=== PATIENT | female | born 1960 | race Caucasian/White ===

== ENCOUNTER 2022-02-04 00:23 | Inpatient (IN) | payer MEDICARE, OTHER ==
[~2022-02-04] VITALS: Ht 162.6 cm; Wt 66.6 kg
[2022-02-04 00:44] LABS: PO2 Arterial 76.4 mmHg (80-100); pH Blood Arterial 7.27 (7.35-7.45)
[2022-02-04 00:54] LABS: BASOPHILS ABSOLUTE AUTO 0.05 K/mm3 (0.00-0.23); BASOPHILS PERCENT AUTO 0 % (0-2); EOSINOPHILS ABSOLUTE AUTO 0.01 K/mm3 (0.00-0.68); EOSINOPHILS PERCENT AUTO 0 % (0-6); Hematocrit 33.9 % (33.0-51.0); Hemoglobin 9.2 g/dL (11.5-16.0); IMMATURE GRAN ABSOLUTE AUTO 0.29 K/mm3 (0.00-0.10); IMMATURE GRAN PERCENT AUTO 2 % (0-1); LYMPHOCYTES ABSOLUTE AUTO 0.76 K/mm3 (0.84-5.20); LYMPHOCYTES PERCENT AUTO 4 % (21-46); MONOCYTES ABSOLUTE AUTO 1.58 K/mm3 (0.16-1.47); MONOCYTES PERCENT AUTO 9 % (4-13); Mean Corpuscular HGB 23.7 pg (26.0-34.0); Mean Corpuscular HGB Conc 27.1 g/dL (31.5-36.5); Mean Corpuscular Volume 87 fL (80-100); Mean Platelet Volume 9.8 fL (9.1-12.4); NEUTROPHILS ABSOLUTE AUTO 15.68 K/mm3 (1.96-9.15); NEUTROPHILS PERCENT AUTO 85 % (41-73); Platelet Count 401 K/mm3 (150-400); RDW Coefficient Variation 21.5 % (11.7-14.2); RDW Standard Deviation 68.5 fL (35.1-46.3); Red Blood Cell Count 3.89 M/mm3 (3.80-5.20); White Blood Cell Count 18.37 K/mm3 (4.00-11.30)
[2022-02-04 00:55] LABS: Calcium, Ionized (POC) 1.06 mmol/L (1.10-1.46); Chloride (POC) 93 mmol/L (98-108); Creatinine (POC) 1.3 mg/dL (0.6-1.0); Glucose (ISTAT POC) 237 mg/dL (70-99); Hemoglobin (POC) 11.9 g/dL (12.0-16.0); Potassium (POC) 4.2 mmol/L (3.5-5.5); Sodium (POC) 135 mmol/L (135-148); Total CO2 (POC) 34 mmol/L (21-32)
[2022-02-04 01:13] LABS: Albumin, Blood 2.6 g/dL (3.4-5.0); Albumin/Globulin Ratio 0.6 (0.8-1.8); Bilirubin, Direct 0.4 mg/dL (0.0-0.3); Bilirubin, Indirect 0.3 mg/dL (0.1-0.7); Bilirubin, Total 0.7 mg/dL (0.1-1.0); Calcium, Blood 8.2 mg/dL (8.5-10.1); Creatinine, Blood 1.16 mg/dL (0.40-1.00); Globulin, Blood 4.4 g/dL (2.2-4.0); Potassium, Blood 4.1 mmol/L (3.5-5.5)
[2022-02-04 01:14] LABS: International Normalized Ratio 1.18; Prothrombin Time Results 12.3 Sec (9.7-11.5)
[2022-02-04 01:36] LABS: Source, Urine Foley catheter
[2022-02-04 01:43] LABS: Bilirubin, Urine Neg (Neg); Blood, Urine 5+ (Neg); Glucose Qualitative, Urine 4+ (Neg); Ketones, Urine Neg (Neg); Leukocyte Esterase, Urine Neg (Neg); Nitrite, Urine Neg (Neg); Protein, Urine 4+ (Neg); Urobilinogen, Urine 2+ (Normal)
[2022-02-04 01:46] LABS: Appearance, Urine Hazy (Clear); Color, Urine Yellow (P-Yellow)
[2022-02-04 01:52] LABS: Red Blood Cells, Urine TNTC /hpf (0-2)
[2022-02-04 01:53] LABS: Amorphous Mod (0-Heavy); Bacteria Many /hpf; Squamous Epithelial Cells Mod /hpf (Few)
[2022-02-04 02:05] LABS: U Amphetamine Screen DETECTED; U Barbituate Screen Not Detected; U Benzodiazapine Screen Not Detected; U Buprenorphine Screen Not Detected; U Cannabinoids Screen Not Detected; U Cocaine Screen Not Detected; U Methadone Screen Not Detected; U Methamphetamine Screen DETECTED; U Opiates Screen DETECTED; U Oxycodone Screen Not Detected; U Phencyclidine Screen Not Detected; U Propoxyphene Screen Not Detected
[2022-02-04 02:17] LABS: Influenza A, PCR NEGATIVE (NEGATIVE); Influenza B, PCR NEGATIVE (NEGATIVE); Resp Syncytial Virus, PCR NEGATIVE (NEGATIVE); SARS-Cov-2 (COVID-19) PCR, MMC NEGATIVE (NEGATIVE)
[2022-02-04 05:09] LABS: PO2 Arterial 71.5 mmHg (80-100)
[2022-02-04 05:10] LABS: pH Blood Arterial 7.27 (7.35-7.45)
[2022-02-04 05:11] LABS: PCO2 Arterial 74.3 mmHg (35-45)
[2022-02-04 05:44] LABS: Source, Urine Foley catheter
[2022-02-04 05:48] LABS: Albumin, Blood 2.4 g/dL (3.4-5.0); Albumin/Globulin Ratio 0.6 (0.8-1.8); Bilirubin, Total 0.7 mg/dL (0.1-1.0); Bun/Creatinine Ratio 16.9 (12.0-20.0); Calcium, Blood 8.1 mg/dL (8.5-10.1); Creatinine, Blood 1.18 mg/dL (0.40-1.00); Globulin, Blood 4.1 g/dL (2.2-4.0); Potassium, Blood 4.1 mmol/L (3.5-5.5); Total Protein, Blood 6.5 g/dL (6.4-8.2)
[2022-02-04 05:51] LABS: Bilirubin, Urine Neg (Neg); Blood, Urine 5+ (Neg); Glucose Qualitative, Urine 2+ (Neg); Ketones, Urine Neg (Neg); Leukocyte Esterase, Urine 2+ (Neg); Nitrite, Urine Pos (Neg); Protein, Urine 4+ (Neg); Urobilinogen, Urine 1+ (Normal)
[2022-02-04 06:02] LABS: Appearance, Urine Cloudy (Clear); Color, Urine Yellow (P-Yellow)
[2022-02-04 06:03] LABS: Amorphous Heavy (0-Heavy); Bacteria Many /hpf; Granular Casts 25-50 /lpf (0); Mucus Light (0-Heavy); Red Blood Cells, Urine 0-2 /hpf (0-2); Squamous Epithelial Cells Not Seen /hpf (Few); WBC Cast 0-2 /lpf (0); White Blood Cells, Urine TNTC /hpf (0-5)
[2022-02-04 06:10] LABS: BASOPHILS ABSOLUTE AUTO 0.05 K/mm3 (0.00-0.23); BASOPHILS PERCENT AUTO 0 % (0-2); EOSINOPHILS PERCENT AUTO 0 % (0-6); Hematocrit 37.5 % (33.0-51.0); Hemoglobin 9.8 g/dL (11.5-16.0); IMMATURE GRAN ABSOLUTE AUTO 0.28 K/mm3 (0.00-0.10); IMMATURE GRAN PERCENT AUTO 1 % (0-1); LYMPHOCYTES ABSOLUTE AUTO 0.51 K/mm3 (0.84-5.20); LYMPHOCYTES PERCENT AUTO 2 % (21-46); MONOCYTES ABSOLUTE AUTO 0.98 K/mm3 (0.16-1.47); MONOCYTES PERCENT AUTO 5 % (4-13); Mean Corpuscular HGB 23.4 pg (26.0-34.0); Mean Corpuscular HGB Conc 26.1 g/dL (31.5-36.5); Mean Corpuscular Volume 90 fL (80-100); Mean Platelet Volume 9.6 fL (9.1-12.4); NEUTROPHILS ABSOLUTE AUTO 20.02 K/mm3 (1.96-9.15); NEUTROPHILS PERCENT AUTO 92 % (41-73); Platelet Count 334 K/mm3 (150-400); RDW Coefficient Variation 21.7 % (11.7-14.2); RDW Standard Deviation 70.6 fL (35.1-46.3); Red Blood Cell Count 4.19 M/mm3 (3.80-5.20); White Blood Cell Count 21.84 K/mm3 (4.00-11.30)
--- NOTE | 2022-02-04 07:15 | NUR ---
PT ARRIVES TO ICU 09 FROM ED AT 0455. REPORT RECEIVED. PT SLIDE TRANSFERRED TO BED FROM [facility]. PT DOES NOT RESPOND TO VERBAL. DOES TO NOXIOUS STIMULI. NO VERBAL OUTPUT. WILL REVIEW CHART AND PLAN OF CARE FOR THIS PT.
--- NOTE | 2022-02-04 07:19 | NUR ---
ASSUMPTION OF CARE RECEIVED REPORT FROM SUZANNE CASTILLO, ASSUMED CARE OF PATIENT. PATIENT WITH EYES CLOSED, RESPONDS TO PAIN AND FOLLOWED COMMANDS OF SQUEEZING HANDS BUT DID NOT OPEN EYES, SAID "OWE" DURING ASSESSMENT OF BABB CATHETER. BIPAP WITH SETTINGS 16/8, FIO2 35% SP02 LOW 90'S WITH INCONSISTENT READING DUE TO POOR PERFUSION. TACHYCARDIC WITH PAC'S 90-120'S. MULTIPLE WOUNDS AND BRUISES NOTED THROUGHOUT EXTREMITIES. BABB PATENT AND DRAINING YELLOW URINE WITH SEDIMENT. REDNESS NOTED AROUND RACHEL AREA. LR INFUSING AT 100ML/HR. WILL REVIEW ORDERS AND TREAT PRESCRIBED.
--- NOTE | 2022-02-04 10:02 | NUR ---
AFIB PATIENT CONVERTED TO AFIB AT 09, NOTIFIED DR. BEDOYA VIA T/P. RATE CURRENTLY 110-130'S. NO NEW ORDERS RECEIVED AT THIS TIME, DR. BEDOYA NOTIFIED. PATIENT NOW IN SVT RATE IN 150'S. RENOTIFIED DR. BEDOYA AND RECEIVED ORDERS. WILL TREAT PRESCRIBED.
[2022-02-04 11:35] LABS: Base Excess Venous 7.3 mmol/L; Bicarbonate Venous 28.7 mmol/L (24.0-30.0); pH Blood Venous 7.27 (7.34-7.37)
[2022-02-04] MEDS ORDERED: POTA10T PO (16:33)
[2022-02-04] MEDS ORDERED: FURO20 PO (16:33)
[2022-02-04] MEDS ORDERED: SYNTHROID137 MCG PO (16:34)
[2022-02-04] MEDS ORDERED: TRELEGY ELLIPT1 EAC1 INH (16:35)
--- NOTE | 2022-02-04 18:22 | NUR ---
SHIFT SUMMARY PATIENT WITH DECREASED LOC AT START OF SHIFT. BIPAP 16/8 WITH FIO2 35%, SP02 UNABLE TO OBTAIN. VBG'S MONITORED. PATIENT ABLE TO WAKE UP AND COMMUNICATE NAME, , AND DAUGHTER'S CONTACT INFORMATION. CONVERTED TO AFLUTTER, METOPROLOL ONE TIME DOSE GIVEN AND STARTED ON AMIODARONE. PATIENT NOW ON 4L 02 VIA NC, A/0, DIET ORDER RECEIVED. PASSED NURSING BEDSIDE SWALLOW EXAM. WILL REPORT TO ONCOMING RN.
--- NOTE | 2022-02-04 20:00 | NUR ---
ASSUMED CARE OF PT AT 1915. REPORT RECEIVED. PT PRESENTS IN BED. AWAKE, ALERT AND ORIENTED. PLEASANT AND COOPERATIVE WITH CARE AND ASSESSMENT. FINISHING EATING HER MEAL. PT QUICKLY FALLS ASLEEP AFTER SHE EATS. NO APPARENT DISTRESS TO NOTE. HAVING SOMEWHAT DIFFICULT TIME ACHIEVING A SATURATION READING. WILL DO SPOT CHECKS ABLE. PT, AT TIME OF ASSESSMENT, WAS IN SINUS TACHY WITH RATES 140'S HAS CHANGED TO AFIB AND THEN BACK TO SINUS RHYTHM WITH FREQUENT PAC'S. PT CURRENTLY WITH RATES 90-100'S. BLOOD PRESSURES WITHIN NORMAL LIMITS. CONTINUES ON AMIODARONE PER ORDERS. WILL REVIEW CHART AND PLAN OF CARE FOR THIS PT.
--- NOTE | 2022-02-05 00:15 | NUR ---
PT HAS BEEN ABLE TO MOVE HERSELF ABOUT IN BED. NO COMPLAINTS VOICED. HAD NASAL CANNULA OFF HER NARES AND SATURATIONS WERE 88 PERCENT ON ROOM AIR. PLACED NC BACK IN PLACE AT 2 LITERS. OXYGEN SATURATION 99 PERCENT. PT STATES THAT SHE WEARS O2 AT HOME AT 2 LITERS PER MINUTE. HAVE DECREASED O2 TO 1 LITER WHEREAS HER SATURATIONS ARE AT 95 PERCENT. WILL CONTINUE TO MONITOR.
[2022-02-05 03:31] LABS: PCO2 Arterial 71.5 mmHg (35-45); PO2 Arterial 64.7 mmHg (80-100); pH Blood Arterial 7.27 (7.35-7.45)
[2022-02-05 03:38] LABS: BASOPHILS ABSOLUTE AUTO 0.04 K/mm3 (0.00-0.23); BASOPHILS PERCENT AUTO 0 % (0-2); EOSINOPHILS PERCENT AUTO 0 % (0-6); Hemoglobin 9.7 g/dL (11.5-16.0); IMMATURE GRAN ABSOLUTE AUTO 0.17 K/mm3 (0.00-0.10); IMMATURE GRAN PERCENT AUTO 1 % (0-1); LYMPHOCYTES ABSOLUTE AUTO 0.76 K/mm3 (0.84-5.20); LYMPHOCYTES PERCENT AUTO 3 % (21-46); MONOCYTES ABSOLUTE AUTO 1.68 K/mm3 (0.16-1.47); MONOCYTES PERCENT AUTO 7 % (4-13); Mean Corpuscular HGB 23.4 pg (26.0-34.0); Mean Corpuscular HGB Conc 25.5 g/dL (31.5-36.5); Mean Corpuscular Volume 92 fL (80-100); Mean Platelet Volume 9.9 fL (9.1-12.4); NEUTROPHILS PERCENT AUTO 88 % (41-73); NRBC ABSOLUTE 0.03 K/mm3 (0.00-0.02); NRBC Auto 0.1 /100 WBC (0.0-0.2); Platelet Count 353 K/mm3 (150-400); RDW Coefficient Variation 21.8 % (11.7-14.2); Red Blood Cell Count 4.15 M/mm3 (3.80-5.20); White Blood Cell Count 22.75 K/mm3 (4.00-11.30)
[2022-02-05 03:58] LABS: Albumin, Blood 2.3 g/dL (3.4-5.0); Albumin/Globulin Ratio 0.5 (0.8-1.8); Bilirubin, Total 0.2 mg/dL (0.1-1.0); Calcium, Blood 8.5 mg/dL (8.5-10.1); Creatinine, Blood 1.25 mg/dL (0.40-1.00); Globulin, Blood 4.4 g/dL (2.2-4.0); Potassium, Blood 4.4 mmol/L (3.5-5.5); Total Protein, Blood 6.7 g/dL (6.4-8.2)
--- NOTE | 2022-02-05 04:32 | NUR ---
CALL MADE TO DR ARMENDARIZ CONCERNING THIS AM'S LACTIC ACID BEING ELEVATED. ORDERS RECEIVED. ALSO MADE AWARE OF THIS AM'S ABG RESULTS. PT CURRENTLY ON BIPAP. WILL CONTINUE TO MONITOR PT.
--- NOTE | 2022-02-05 07:03 | NUR ---
ASSUMPTION OF CARE RECEIVED REPORT FROM SUZANNE CASTILLO, ASSUMED CARE OF PATIENT. PATIENT IN BED, EASILY AWAKENS. BIPAP IN PLACE 15/03, 35%. VITALS STABLE, IN SINUS RHYTHM WITH RATE 80-90'S, AMIO CONTINUES AT 0.5MG/MIN. NS INFUSING AT 75ML/HR PER ORDERS. LACTIC ACID BEING DRAWN AT THIS TIME. BABB PATENT AND DRAINING YELLOW URINE WITH SEDIMENT. WILL REVIEW ORDERS AND TREAT PRESCRIBED.
--- NOTE | 2022-02-05 17:52 | NUR ---
SHIFT SUMMARY NEURO: PATIENT A/O, FOLLOWS DIRECTIONS. CARDIAC: SINUS WITH MULTIPLE PAC'S, AMIO IV COMPLETED AND PO AMIO ORDERED. ECHO COMPLETED, CTA PERFORMED AFTER ECHO RESULTS RECEIVED. PULMONARY: BIPAP REMOVED AT BREAKFAST, 2L NC PLACED. SP02 REMAINS ABOVE 90%. GI: TOLERATING PO INTAKE WELL. : BABB PATENT, INCREASED URINE OUTPUT AFTER LASIX WAS GIVEN. SKIN: PLACED BARRIER OINTMENT AND PINK FOAM DRESSING TO BUTTOCKS AFTER BATH, TURNED EVERY 2 HOURS FOR COMFORT AND TO PROMOTE SKIN INTEGRITY. PATIENT DOWNGRADED TO PCU STATUS PER DR. BEDOYA, AM LABS ORDERED. WILL GIVE REPORT TO ONCOMING RN.
--- NOTE | 2022-02-06 01:22 | NUR ---
PT CONTINUES WITH BIPAP. DENIES COMPLAINTS. TOLERATES Q 2 HOUR TURNS. WILL CONTINUE TO MONITOR.
[2022-02-06 03:28] LABS: BASOPHILS ABSOLUTE AUTO 0.01 K/mm3 (0.00-0.23); BASOPHILS PERCENT AUTO 0 % (0-2); EOSINOPHILS ABSOLUTE AUTO 0.01 K/mm3 (0.00-0.68); EOSINOPHILS PERCENT AUTO 0 % (0-6); Hemoglobin 8.5 g/dL (11.5-16.0); IMMATURE GRAN ABSOLUTE AUTO 0.19 K/mm3 (0.00-0.10); IMMATURE GRAN PERCENT AUTO 1 % (0-1); LYMPHOCYTES ABSOLUTE AUTO 0.73 K/mm3 (0.84-5.20); LYMPHOCYTES PERCENT AUTO 5 % (21-46); MONOCYTES ABSOLUTE AUTO 1.26 K/mm3 (0.16-1.47); MONOCYTES PERCENT AUTO 8 % (4-13); Mean Corpuscular HGB 23.3 pg (26.0-34.0); Mean Corpuscular HGB Conc 26.6 g/dL (31.5-36.5); Mean Corpuscular Volume 88 fL (80-100); Mean Platelet Volume 9.3 fL (9.1-12.4); NEUTROPHILS PERCENT AUTO 86 % (41-73); NRBC ABSOLUTE 0.04 K/mm3 (0.00-0.02); NRBC Auto 0.3 /100 WBC (0.0-0.2); Platelet Count 410 K/mm3 (150-400); RDW Coefficient Variation 21.2 % (11.7-14.2); RDW Standard Deviation 67.9 fL (35.1-46.3); Red Blood Cell Count 3.65 M/mm3 (3.80-5.20)
[2022-02-06 03:47] LABS: Albumin, Blood 2.1 g/dL (3.4-5.0); Albumin/Globulin Ratio 0.6 (0.8-1.8); Bilirubin, Total 0.4 mg/dL (0.1-1.0); Bun/Creatinine Ratio 18.6 (12.0-20.0); Creatinine, Blood 1.4 mg/dL (0.40-1.00); Globulin, Blood 3.8 g/dL (2.2-4.0); Potassium, Blood 3.4 mmol/L (3.5-5.5); Total Protein, Blood 5.9 g/dL (6.4-8.2)
[2022-02-06 05:06] LABS: Magnesium, Blood 1.7 mg/dL (1.6-2.4)
--- NOTE | 2022-02-06 06:36 | NUR ---
SHIFT SUMMARY: PT REPORT RECEIVED FROM JONATHAN PALACIOS AT 0245 AND ASSUMED PT CARE. PT DROWSY TO SLEEPING ON THE BIPAP, 16/8 AND 35% FOR MOST OF THE NIGHT. PT IS AA&OX4 BUT SEEMS TO BE WITHDRAWN. AROUND 0437 PT'S HR WAS NOTED TO BE HIGH, AT TIMES IN THE 160'S, WITH RHYTHM SEEMING TO VARY BETWEEN A-FIB RVR AND SVT. PT DENIES ANY INCREASED SOB OR CHEST DISCOMFORT WITH THE ELEVATED HR, AND BE AND SPO2 REMAINED STABLE. BETHANY PURVIS WAS NOTIFIED AND ORDERS WERE RECEIVED TO REPLACE POTASSIUM IV AND TO CHECK MAG LEVEL. PT THEN CONVERTED TO A SLOWER SINUS ARRHYTHMIA WITH RATE OF 80'S-120'S AND DID THIS APROXIMATLY THREE MORE TIMES. PT'S PO AMIODARONE WAS GIVEN EARLY FOR BETTER RATE CONTROL. PT ABLE TO TOLLERATE PO INTAKE WELL AND HAD GOOD OUT PUT FROM THE CATHETER.
--- NOTE | 2022-02-06 08:55 | NUR ---
ASSUMPTION OF CARE RECEIVED REPORT AT 0700 FROM MARY CASTILLO. ASSUMED CARE OF PATIENT. PATIENT IN BED, EASILY AWAKENED. A/O, DENIED DISCOMFORTS. VITALS STABLE ON 2L 02 VIA NC. POTASSIUM IV COMPLETING. RT TO ROOM TO GIVE MORNING TREATMENTS. REVIEWED ORDERS, SPOKE WITH DR. EATON AT 0830 REGARDING CHANGES TO MEDICATIONS AND TREATMENT PLAN. CALL LIGHT IN REACH.
[2022-02-06 10:20] LABS: Base Excess Venous 6.6 mmol/L; Bicarbonate Venous 29.5 mmol/L (24.0-30.0); PCO2 Venous 58.6 mmHg (38-42); pH Blood Venous 7.35 (7.34-7.37)
--- NOTE | 2022-02-06 17:53 | NUR ---
SHIFT SUMMARY PATIENT ON 2L 02 VIA NC WITH SATS ABOVE 95%, VBG OBTAINED AND IMPROVED. METOPROLOL ADDED DUE TO RATE CONTROL, PATIENT CONVERTED BACK INTO SVT VS. AFIB WITH RATE 140-150'S. EKG OBTAINED, METOPROLOL DOSE INCREASED AND GIVEN PO CHARTED. EDEMATOUS IN RLE MORE THAN LEFT, IMAGING COMPLETED TO R/OUT DVT. INCREASED URINE OUTPUT WITH EDEMA DECREASING. STANDBY ASSIST AND WALKER WITH ACTIVITY. CALL LIGHT REMAINS IN REACH, WILL REPORT TO ONCOMING RN.
[2022-02-06 19:38] LABS: Base Excess Venous 10.5 mmol/L; Bicarbonate Venous 33.1 mmol/L (24.0-30.0); pH Blood Venous 7.43 (7.34-7.37)
--- NOTE | 2022-02-06 20:13 | NUR ---
PATIENT AWAKE WATCHING TV. C/O FEELING ANXIOUS AND THAT SHE IS NEEDING SOMETHING TO HELP HER RELAX AND SLEEP. ALSO C/O BACK PAIN WHICH IS CHRONIC IN NATURE. PATIENT VERBALIZED THAT SHE TAKES TYLENOL PM AT HOME. VBG RESULTS FROM RT IMPROVING FROM ADMIT PATIENT WITH WHEEZES T/O ON 2L/NC OXYGEN. PATIENT NOT WANTING TO FINISH BREATHING TREATMENT AT THIS TIME. GENERALIZED EDEMA CONTINUES. BABB IN PLACE DRAINING CLEAR YELLOW URINE. CALL OUT TO DOCTOR BRE REGARDING VBG AND REQUEST FOR TYLENOL PM.
--- NOTE | 2022-02-06 21:01 | NUR ---
DOCTOR JOVON NOTIFIED OF VBG AND IONIZED CALCIUM AND REGARDING PATIENT WANTING SOMETHING TO HELP HER SLEEP AND FOR HER BACK PAIN. AWAITING NEW ORDERS
[2022-02-07 03:56] LABS: BASOPHILS ABSOLUTE AUTO 0.02 K/mm3 (0.00-0.23); BASOPHILS PERCENT AUTO 0 % (0-2); EOSINOPHILS ABSOLUTE AUTO 0.08 K/mm3 (0.00-0.68); EOSINOPHILS PERCENT AUTO 1 % (0-6); Hematocrit 33.9 % (33.0-51.0); Hemoglobin 9.2 g/dL (11.5-16.0); IMMATURE GRAN ABSOLUTE AUTO 0.21 K/mm3 (0.00-0.10); IMMATURE GRAN PERCENT AUTO 2 % (0-1); LYMPHOCYTES PERCENT AUTO 10 % (21-46); MONOCYTES ABSOLUTE AUTO 1.46 K/mm3 (0.16-1.47); MONOCYTES PERCENT AUTO 10 % (4-13); Mean Corpuscular HGB 23.5 pg (26.0-34.0); Mean Corpuscular HGB Conc 27.1 g/dL (31.5-36.5); Mean Corpuscular Volume 87 fL (80-100); Mean Platelet Volume 9.9 fL (9.1-12.4); NEUTROPHILS PERCENT AUTO 78 % (41-73); NRBC ABSOLUTE 0.05 K/mm3 (0.00-0.02); NRBC Auto 0.4 /100 WBC (0.0-0.2); Platelet Count 391 K/mm3 (150-400); RDW Coefficient Variation 21.2 % (11.7-14.2); RDW Standard Deviation 66.9 fL (35.1-46.3); Red Blood Cell Count 3.92 M/mm3 (3.80-5.20); White Blood Cell Count 14.17 K/mm3 (4.00-11.30)
[2022-02-07 04:14] LABS: Albumin, Blood 2.1 g/dL (3.4-5.0); Albumin/Globulin Ratio 0.5 (0.8-1.8); Bilirubin, Total 0.2 mg/dL (0.1-1.0); Bun/Creatinine Ratio 20.9 (12.0-20.0); Calcium, Blood 8.2 mg/dL (8.5-10.1); Creatinine, Blood 1.15 mg/dL (0.40-1.00); Potassium, Blood 3.4 mmol/L (3.5-5.5); Total Protein, Blood 6.1 g/dL (6.4-8.2)
--- NOTE | 2022-02-07 06:34 | NUR ---
SUMMARY PATIENT SLEEPING OFF AND ON T/O NIGHT. REPOSITIONING FREQUENTLY IN BED WITH MIN ASSISTANCE ARRANGING PILLOWS FOR COMFORT. USING CALL LIGHT APPROPRIATELY PATIENT CONTINUES TO C/O BACK PAIN WHICH SHE VERBALIZED IS CHRONIC IN NATURE. PATIENT REF BIPAP DURING THE NIGHT, REMAINS IN ROOM IF NEEDED. WEARING 2L/NC T/O NIGHT.
--- NOTE | 2022-02-07 08:15 | NUR ---
ASSUMED CARE: REPORT RECEIVED FROM ROSEY Diana RN. ASSUMED CARE OF THIS PT AT APPROX 0745. ON ASSESSEMENT, THE PT IS RESTING QUIETLY. SHE AWAKENS BRIEFLY TO VERBAL STIMULUS & STS BEING TIRED, NOT HAVING SLEPT WELL DURING THE NIGHT, BEFORE RESUMING SLEEPING. LS ARE DIM IN BASES, SLIGHT WHEEZES NOTED T/O. PT ON 2L NC W/ O2 SATS > 95%. MONITOR SHOWS SR W/ FREQUENT PVCs & PACs, HR 60-80s, BP STABLE. PT HAS NO GI COMPLAINTS, HOLDING BREAKFAST TRAY UNTIL PT MORE ALERT. BABB PATENT/ DRAINING YELLOW URINE. SKIN CONDITION OVERALL FRAGILE, POOR. PHOTO DOCUMENTATION IN CHART. Q2H REPOSITIONING TO MAINTAIN SKIN INTEGRITY. WILL CONTINUE TO MONITOR & UPDATE NEEDED.
--- NOTE | 2022-02-07 13:45 | NUR ---
DR BEDOYA: CALL TO PROVIDER REQUESTING PHYSICAL & OCCUPATIONAL THERAPY EVALS. HE STS HE WILL PLACE ORDERS FOR THESE, WELL A PALLIATIVE CARE CONSULTATION. HE WILL PLACE THESE ORDERS & REQUESTS THAT THIS RN PLACE TRANSFER ORDERS FOR MEDICAL W/ TELE STATUS. ORDERS PLACED, NO OTHER CHANGES AT THIS TIME.
--- NOTE | 2022-02-07 16:37 | NUR ---
Had a slow and careful conversation with patient. She had some struggles with participating due to fatigue and debilty and dyspnea. Aslso suspect starting to decline cognatively. PT denies headaches some dizziness no ringing in ears. She is not sure but does not recall falling recently. She denies nausea not much appetitite, She does not sleep because of terrible pain and feels she cannot breath. She still smokes a few cigarets a day. Denies alcohol. She dose use marijuanna when she can get it and that helps more than anything. We discussed her drug use. She uses meth when it is there to function but the heroin stops the pain.Progress note states she shot up in her neck. Will review with renal social worker. Strong suspision after assessing her that she does not have the strength or ability to perform that task. She states she has enough money and food to survive. She denies being fearfull or threatened. Aske her about her brother if he is sick or stressed. She stated he has been told he has a mass on his live. Asked her if he is in fear and escalting his substance abuse she stated yes. Advised her I will help her with her pain and air hunger. Called daughter to get more history. No answer left a message. Pt repeat events and her ejection fraction are concerning her kps score is 30% needs a safe environment and possibly hospice. Will follow up with care managers. Will see if she clears up more may need cognative eval.
--- NOTE | 2022-02-07 19:41 | NUR ---
SHIFT SUMMARY: NO ACUTE CHANGES SINCE PRIOR UPDATES. PT REMAINS A&O, OVERALL COOPERATIVE W/ CARE BUT UNMOTIVATED THIS SHIFT. SHE IS RELUCTANT TO WORK W/ THERAPIES & REFUSES TO GET OOB FOR MEALS. PT ON 2L NC W/ O2 SATS > 92%. MONITOR SHOWS SR W/ HR 70-90s FREQUENT PVCs & PACs. TOLERATES PO INTAKE WELL, HAS NO GI COMPLAINTS. BABB PATENT/ DRAINING YELLOW URINE. SKIN CONDITION OVERALL FRAGILE, PT ABLE TO REPOSITION HERSELF IN BED FOR COMFORT & OFTEN REMOVES PILLOWS AFTER REPOSITIONED BY STAFF. REPORT [place] BEEN GIVEN TO KATY Galloway RN TO ASSUME CARE.
[2022-02-08 03:40] LABS: BASOPHILS ABSOLUTE AUTO 0.05 K/mm3 (0.00-0.23); BASOPHILS PERCENT AUTO 0 % (0-2); EOSINOPHILS ABSOLUTE AUTO 0.14 K/mm3 (0.00-0.68); EOSINOPHILS PERCENT AUTO 1 % (0-6); Hematocrit 34.2 % (33.0-51.0); Hemoglobin 8.7 g/dL (11.5-16.0); Mean Corpuscular HGB 22.8 pg (26.0-34.0); Mean Corpuscular HGB Conc 25.4 g/dL (31.5-36.5); Mean Corpuscular Volume 90 fL (80-100); Mean Platelet Volume 9.4 fL (9.1-12.4); NRBC ABSOLUTE 0.04 K/mm3 (0.00-0.02); NRBC Auto 0.3 /100 WBC (0.0-0.2); Platelet Count 439 K/mm3 (150-400); RDW Standard Deviation 69.6 fL (35.1-46.3); Red Blood Cell Count 3.81 M/mm3 (3.80-5.20)
[2022-02-08 03:43] LABS: IMMATURE GRAN ABSOLUTE AUTO 0.28 K/mm3 (0.00-0.10); IMMATURE GRAN PERCENT AUTO 2 % (0-1); LYMPHOCYTES ABSOLUTE AUTO 1.25 K/mm3 (0.84-5.20); LYMPHOCYTES PERCENT AUTO 10 % (21-46); MONOCYTES ABSOLUTE AUTO 1.04 K/mm3 (0.16-1.47); MONOCYTES PERCENT AUTO 9 % (4-13); NEUTROPHILS ABSOLUTE AUTO 9.54 K/mm3 (1.96-9.15); NEUTROPHILS PERCENT AUTO 78 % (41-73)
[2022-02-08 03:53] LABS: Bun/Creatinine Ratio 16.8 (12.0-20.0); Calcium, Blood 7.9 mg/dL (8.5-10.1); Creatinine, Blood 1.13 mg/dL (0.40-1.00); Potassium, Blood 3.9 mmol/L (3.5-5.5)
--- NOTE | 2022-02-08 04:55 | NUR ---
PT RESTED OVERNIGHT. UNEVENTFUL. ON NC 1L. BREATHING TREATMENT BY RT. PAIN MANAGED ON PRN EFFECTIVE. TURNS SELF INDEPENDENT BONY PROMINENCES PROTECTED AND OFFLOADED. BABB CARE PERFORMED BY ARTISAN PLASTERER.
--- NOTE | 2022-02-08 08:20 | NUR ---
ASSUMED CARE / DR GIANG: REPORT RECEIVED FROM KATY Galloway RN. ASSUMED CARE OF THIS PT AT APPROX 0700. ON ASSESSMENT, THE PT IS AWAKE, ORIENTED TO ALL. SHE STS FEELING "OKAY" THIS AM BUT IS UNWILLING TO ELABORATE FURTHER. LS ARE WHEEZING IN UPPER LOBES, PER HERBERT Diana, RT, THE PT HAS JUST RECEIVED AM INHALER DOSE & NEBULIZER TX. O2 TITRATED UP FROM 1L/MIN TO 2L/MIN FOR DESATS TO 87% WHILE EATING, O2 SATS NOW > 92%. MONITOR SHOWS SR W/ FREQUENT PVC/ PACs, HR 70-90s, BP STABLE. PT HAS NO GI COMPLAINTS, IS TOLERATING PO INTAKE WELL. BABB PATENT/ DRAINING YELLOW URINE. SKIN CONDITION OVERALL FRAGILE/ ECCHYMOTIC W/ NUMEROUS WOUNDS - SEE PHOTO DOCUMENTATION. Q2H REPOSITIONING TO MAINTAIN SKIN INTEGRITY. DR GIANG AT BEDSIDE THIS AM TO EVAL PT. HE STS THAT THE PT IS AGREEABLE TO WEARING A BIPAP AT NOC & ACKNOWLEDGES THAT SHE WILL LIKELY RETURN TO THE HOSPITAL AFTER DISCHARGING IF SHE DOES NOT USE HER TRILOGY ORDERED. WILL NOTIFY RT TO GET BIPAP AT BEDSIDE FOR THIS EVENING. PROVIDER WOULD ALSO LIKE THE PT's BABB REMOVED THIS AM. NO OTHER CHANGES AT THIS TIME. WILL CONTINUE TO MONITOR & UPDATE NEEDED.
--- NOTE | 2022-02-08 14:30 | NUR ---
TRANSFER OF CARE: REPORT GIVEN TO JOSE FRANCISCO Ragland RN TO ASSUME CARE. NO CHANGES TO PRIOR UPDATES.
--- NOTE | 2022-02-08 14:30 | NUR ---
ASSUMED CARE FROM MELISSA CASTILLO PT. RESTING QUIETLY AT THIS TIME, ALL NEEDS MET AT THIS TIME, ABLE TO REPOSITION SELF FOR COMFORT.
--- NOTE | 2022-02-08 17:50 | NUR ---
pt up in chair much improved. Review of pt in rounds. She may want to return home again. Trying to get her placed pt risk for repeat overdoses and probable further cagnative decline. kps score is 40%
--- NOTE | 2022-02-08 19:14 | NUR ---
PT REMAINS IN BED, RESTING COMFORTABLY. VSS. REPORT TO ONCOMING RN.
[2022-02-09 03:33] LABS: BASOPHILS ABSOLUTE AUTO 0.08 K/mm3 (0.00-0.23); BASOPHILS PERCENT AUTO 1 % (0-2); EOSINOPHILS ABSOLUTE AUTO 0.27 K/mm3 (0.00-0.68); EOSINOPHILS PERCENT AUTO 2 % (0-6); Hematocrit 37.4 % (33.0-51.0); Hemoglobin 9.6 g/dL (11.5-16.0); Mean Corpuscular HGB 22.9 pg (26.0-34.0); Mean Corpuscular HGB Conc 25.7 g/dL (31.5-36.5); Mean Corpuscular Volume 89 fL (80-100); Mean Platelet Volume 9.6 fL (9.1-12.4); NRBC ABSOLUTE 0.05 K/mm3 (0.00-0.02); NRBC Auto 0.4 /100 WBC (0.0-0.2); Platelet Count 501 K/mm3 (150-400); RDW Coefficient Variation 21.1 % (11.7-14.2); White Blood Cell Count 13.29 K/mm3 (4.00-11.30)
[2022-02-09 03:49] LABS: IMMATURE GRAN ABSOLUTE AUTO 0.49 K/mm3 (0.00-0.10); IMMATURE GRAN PERCENT AUTO 4 % (0-1); LYMPHOCYTES PERCENT AUTO 11 % (21-46); MONOCYTES ABSOLUTE AUTO 1.02 K/mm3 (0.16-1.47); MONOCYTES PERCENT AUTO 8 % (4-13); NEUTROPHILS ABSOLUTE AUTO 9.93 K/mm3 (1.96-9.15); NEUTROPHILS PERCENT AUTO 75 % (41-73)
[2022-02-09 03:53] LABS: Albumin, Blood 2.2 g/dL (3.4-5.0); Albumin/Globulin Ratio 0.5 (0.8-1.8); Bilirubin, Total 0.3 mg/dL (0.1-1.0); Bun/Creatinine Ratio 21.2 (12.0-20.0); Calcium, Blood 8.4 mg/dL (8.5-10.1); Creatinine, Blood 1.04 mg/dL (0.40-1.00); Globulin, Blood 4.4 g/dL (2.2-4.0); Potassium, Blood 4.7 mmol/L (3.5-5.5); Total Protein, Blood 6.6 g/dL (6.4-8.2)
--- NOTE | 2022-02-09 06:11 | NUR ---
FAMILY IN THE ROOM OVERNIGHT. AIR HUNGER AND AGITATION MANAGED ON PRN - EFFECTIVE. FAMILY UNDERSTANDING OF SITUATION AND THANKFUL FOR THE CARE PROVIDED.
--- NOTE | 2022-02-09 06:14 | NUR ---
SHIFT SUMMARY UNEVENTFUL NIGHT. PT RESTED ON/OFF WATCHED TV MOST OF THE NIGHT. TURNED SELF ASSIST WITH PILLOW WEDGES. BONY PROMINENCES OFFLOADED AND PROTECTED. UNIT RECORDS MANAGEMENT ANALYST PERFORMED PERICARE PER PT WISHES.
--- NOTE | 2022-02-09 09:12 | NUR ---
PATIENT IN NO DISTRESS THIS AM, REPORT FROM KATY GRIMALDO RN, ATE BREAKFAST, D/C TELE, DR GIANG AND DR BEDOYA ROUNDED ON PATIENT, POSSIBLE SNF PLACEMENT VS TRAILER HOME WITH BROTHER, OT IN WORKING WITH PATIENT NOW, RODRÍGUEZ
--- NOTE | 2022-02-09 09:32 | NUR ---
OOB IN CHAIR, CHAIR ALARM ON
--- NOTE | 2022-02-09 10:05 | NUR ---
griffin out, in the shower now
--- NOTE | 2022-02-09 11:05 | NUR ---
Spiritual Care Visit. Visited Pt. after conferring with her nurse. Pt. is awake in bed. Pt. displays evidence of labored communication. With a calming presence abndoned attempt to build rapport, and shifted to addressing spiritual support. Pt. displays evidence that she has not had many visitors. When this optometric assistant asked Pt. if should would like prayer, the pt. nonverbally affirmed that she would. Prayed with Pt. Will remain available to Pt.
[2022-02-09] MEDS ORDERED: PACERONE100 M1 PO (14:31)
[2022-02-09] MEDS ORDERED: Prinivil10 MG PO (14:32)
[2022-02-09] MEDS ORDERED: METO100ER PO (14:35)
[2022-02-09] MEDS ORDERED: XARELTO20 MG PO (14:36)
--- NOTE | 2022-02-09 17:24 | NUR ---
DISCHARGED HOME, AMBULANCE RIDE HOME, APPOINTMENT MADE FOR January, PATIENT STATED UNDERSTANDING OF DISCHARGE INSTRUCTIONS, PATIENT DENIED FURTHER QUESTIONS
== END 2022-02-09 17:15 | disposition home health service (06) | DRG 871 ==
LOC: ER 00:23 → EDBD 02:51 → ICUW 02:51
PROVIDERS: Family Medicine; Student in an Organized Health Care Education/Training Program; ADMIT Internal Medicine
DX: A41.51 Sepsis due to Escherichia coli [E. coli] (principal); G92.8 Other toxic encephalopathy; J96.01 Acute respiratory failure with hypoxia; J96.02 Acute respiratory failure with hypercapnia; I50.33 Acute on chronic diastolic (congestive) heart failure; J18.9 Pneumonia, unspecified organism; J69.0 Pneumonitis due to inhalation of food and vomit; J44.1 Chronic obstructive pulmonary disease with (acute) exacerbation; E87.2 Acidosis; I47.1 Supraventricular tachycardia; J44.0 Chronic obstructive pulmonary disease with (acute) lower respiratory infection; G93.1 Anoxic brain damage, not elsewhere classified; N39.0 Urinary tract infection, site not specified; R65.20 Severe sepsis without septic shock; Z20.822 Contact with and (suspected) exposure to COVID-19; F15.10 Other stimulant abuse, uncomplicated; F11.129 Opioid abuse with intoxication, unspecified; I27.20 Pulmonary hypertension, unspecified; I95.9 Hypotension, unspecified; Z91.19 Patient's noncompliance with other medical treatment and regimen
CPT/HCPCS: 0241U; 36415; 36600; 51702; 71045; 71260; 80047; 80048; 80053; 81001; 82248; 82330; 82803; 82947; 83605; 83735; 84100; 84145; 84443; 84484; 85014; 85025; 85610; 85730; 87040; 87077; 87086; 87186; 93005; 93010; 93308; 93971; 94640; 94660; 94664; 94760; 94762; 96365; 96375; 97110; 97162; 97166; 97530; 97535; 99285-25; A9270; G0480; J0282; J0456; J0610; J0696; J1650; J2543; J2930; J3480; J7030; J7040; J7050; J7060; J7120; Q9967